=== PATIENT | female | born 1975 | race Caucasian/White ===

== ENCOUNTER 2024-08-29 08:49 | Outpatient (CLI) | payer OTHER, SELFPAY | END 2024-08-29 08:50 | disposition home or self-care (01) | PROVIDERS: Visit Provider Emergency Medicine | DX: R73.03 Prediabetes (principal); N92.6 Irregular menstruation, unspecified; Z13.220 Encounter for screening for lipoid disorders | CPT/HCPCS: 80061; 82947; 84443 ==

== ENCOUNTER 2025-07-03 10:05 | Outpatient (CLI) | payer OTHER, SELFPAY ==
--- NOTE | 2025-07-03 10:15 | CRLHL7_ITS ---
For Patients: As a result of the Century Cures Act, medical imaging exams and procedure reports are released immediately into your electronic medical record. You may view this report before your referring provider. If you have questions, please contact your health care provider. INDICATION: BILATERAL SCREENING MAMMOGRAM, ASYMPTOMATIC 49 Y/O FEMALE COMPARISON: 09/16/2023, 06/17/2022 TECHNIQUE: Digital mammogram in CC and MLO projections including computer-aided detection (CAD) and tomosynthesis. BREAST COMPOSITION: There are scattered areas of fibroglandular density. FINDINGS: No suspicious findings. ASSESSMENT: BI-RADS 1 Negative RECOMMENDATION: Annual screening mammogram. A lay language report of this examination will be provided to the patient. Dictated by: Afsaneh Lyn MD @ 07/04/2025 07:05:52 (Electronically Signed)
== END 2025-07-03 10:06 | disposition home or self-care (01) ==
LOC: MAMMO 10:06
PROVIDERS: PCP Physician Assistant Medical; Visit Provider Physician Assistant Medical
DX: Z12.31 Encounter for screening mammogram for malignant neoplasm of breast (principal)
CPT/HCPCS: 77063; 77067